=== PATIENT | male | born 1965 | race Caucasian/White ===

== ENCOUNTER 2023-06-05 15:23 | Emergency (ER) | payer BC ==
--- NOTE | 2023-06-05 15:27 | ED Physician Documentation ---
PD HPI [facility] - Stated complaint Stated Complaint: SI - History obtained from History obtained from: Patient, Police - Additional information Additional information: 57-year-old gentleman with longstanding untreated depression. States he is kind of chronically depressed and has frequent suicidal ideation. Has had an attempt but its been 30 years. He was arguing with his longstanding girlfriend today and he felt briefly suicidal and wrapped a belt around his neck, but as soon as she approached him he reconsidered and took the belt off. He is no longer suicidal. PD ED PE NORMAL - Vitals Vital signs reviewed: Yes - General General: Alert and oriented X 3, No acute distress - HEENT HEENT: PERRL, EOMI - Neuro Neuro: Alert and oriented X 3, Normal speech - Psych Psych: Normal mood, Normal affect Results - Vitals Vitals: Vital Signs - 24 hr 06/05/23 15:26 Temperature 36.1 C L Heart Rate 77 Respiratory 18 Rate Blood Pressure 151/90 H O2 Saturation 100 Oxygen O2 Source Room air PD Medical Decision Making - ED course ED course: 57-year-old gentleman who had a very brief suicide attempt that was more of a gesture today and fleeting, no longer suicidal. We will have social work see him, but he seems low risk at this juncture. Unfortunately it turned out that the social work nurse had gone home before she was able to see this patient. On reevaluation at 4:40 PM he is still not suicidal and contracts for safety with me. I recommended counseling. He declined medications. Departure - Departure Disposition: 01 Home, Self Care Clinical Impression: Suicide ideation Condition: Good Record reviewed to determine appropriate education?: Yes Instructions: ED Depression Follow-Up: Celina Hernandez, [place], [employer], PMHNP [Credentialed Staff Provider] - Comments: Return if you worsen or have recurrent suicidal ideation. I do recommend you follow-up for counseling. [place].
[2023-06-05 15:43] VITALS: BP 151/90; O2SAT 100
== END 2023-06-05 18:28 | disposition home or self-care (01) ==
LOC: ED 15:23
DX: R45.851 Suicidal ideations (principal); F32.A Depression, unspecified
CPT/HCPCS: 99283